=== PATIENT | male | born 1950 | race Caucasian/White ===

== ENCOUNTER 2023-09-03 06:13 | Day surgery (SDC) | payer OTHER, SELFPAY ==
[2023-08-24 10:16] LABS: Hematocrit 46.2 % (39.0-52.0); Hemoglobin 15.8 g/dL (13.0-18.0); Mean Corp Hgb Conc. 34.2 g/dL (33.0-37.0); Mean Corpuscular Hgb 32.3 pg (27.0-31.0); Mean Corpuscular Volume 94.5 fL (80.0-94.0); Mean Platelet Volume 9.4 fL (7.4-10.4); Platelet Count 266 10^3/uL (130-400); Red Blood Cell Count 4.89 10^6/uL (4.70-6.10); White Blood Cell Count 5.1 10^3/uL (4.8-10.8)
[2023-08-24 10:30] LABS: INR 1.03; PT 13.4 Sec (11.4-14.6)
[2023-08-24 10:31] LABS: APTT 30.3 Sec (23.4-35.0); Urine Albumin Negative (Neg - Trace); Urine Bilirubin Negative (Negative); Urine Character Clear (Clear); Urine Color Yellow; Urine Glucose Negative (Negative); Urine Ketone Negative (Negative); Urine Leukocyte Trace (Negative); Urine Nitrite Negative (Negative); Urine Occult Blood Negative (Negative); Urine Urobilinogen Negative (Neg - 1+)
[2023-08-24 10:51] LABS: Blood Urea Nitrogen 25 mg/dl (9-20); Calcium 9.8 mg/dl (8.4-10.2); Carbon Dioxide 28 mmol/L (22-30); Chloride 100 mmol/L (98-107); Glucose 109 mg/dl (70-99); Potassium 4.4 mmol/L (3.5-5.1); Sodium 140 mmol/L (135-145); eGFR > 60.00
[2023-08-24 12:03] LABS: Urine Mucus Few
[2023-08-24 12:04] LABS: Urine Amorphous Seen; Urine Bacteria Few (Negative)
[2023-08-24 12:06] VITALS: BMI 35.5
[2023-09-03] VITALS (9 sets, daily range): BP systolic 145–180; BP diastolic 80–97; BMI 35.5
[2023-09-03] MEDS: NORMOSOL-R 1000 IV ×4 (06:35)
[2023-09-03 07:38] LABS: Urine Albumin Negative (Neg - Trace); Urine Bilirubin Negative (Negative); Urine Character Clear (Clear); Urine Color Yellow; Urine Glucose Negative (Negative); Urine Ketone Negative (Negative); Urine Leukocyte Trace (Negative); Urine Nitrite Negative (Negative); Urine Occult Blood Negative (Negative); Urine Specific Gravity 1.025 (<1.030); Urine Urobilinogen Negative (Neg - 1+)
[2023-09-03 08:15] LABS: Urine Squamous Cell 16-20 /LPF (Few); Urine Urothelial Cell 0-2 /LPF (FEW)
[2023-09-03 08:16] LABS: Urine White Cell 16-20 /HPF (0-5)
[2023-09-03 08:17] LABS: Urine Bacteria Few (Negative)
[2023-09-03] MEDS: Pyridium 200 MG PO ×4 (08:51)
[2023-09-08 09:05] LABS: Stone Analysis Mass 281 mg
== END 2023-09-03 10:23 | disposition home or self-care (01) ==
LOC: SDS 06:13
PROVIDERS: ATTENDING PHYSICIAN Specialist; FAMILY PHYSICIAN Family Medicine
DX: N21.0 Calculus in bladder (principal); Z87.442 Personal history of urinary calculi
CPT/HCPCS: 52318; 36415; 80048; 81003; 81015; 82365; 85027; 85610; 85730; 87086; 93005